=== PATIENT | female | born 1990 | race Caucasian/White ===

== ENCOUNTER 2017-08-28 05:15 | Inpatient (IN) | payer OTHER ==
[2017-08-26 13:02] VITALS: BMI 49.4
--- NOTE | 2017-08-28 11:23 | PN ---
Progress Note (short form) - Note Progress Note: PULMONARY CONSULTATION DICTATED 08/28/17 IMP MORBID OBESITY FOR LAPROSCOPIC GASTRIC SLEEVE PLAN AT THIS TIME THERE ARE NO PULMONARY CONTRAINDICATION TO ANTICIPATED SURGERY DVT PROPHYLAXIS POST-OP INCENTIVE SPIROMETER POST-OP DR CHAEVZ Problem List - Problems (1) Morbid obesity due to excess calories Code(s): E66.01 - MORBID (SEVERE) OBESITY DUE TO EXCESS CALORIES (2) Preop pulmonary/respiratory exam Code(s): Z01.811 - ENCOUNTER FOR PREPROCEDURAL RESPIRATORY EXAMINATION
--- NOTE | 2017-08-28 11:59 | CONS ---
DATE OF CONSULTATION: 08/28/2017 PULMONARY CONSULTATION REFERRING PHYSICIAN: Curtis Corcoran MD HISTORY OF PRESENT ILLNESS: The patient is a 27-year-old female without any significant past medical history who presents for pulmonary evaluation for laparoscopic gastric sleeve. She denies any complaints. Denies any history of asthma or COPD. She is a nonsmoker. There is no history of occupational exposure to chemicals or fumes. She denies any history of shortness of breath at rest and/or with exertion. She denies any chronic cough or bronchospasm. Denies any chest pain or palpitations. Denies any fevers or night sweats. Denies any history of pneumonia. She denies any orthopnea or PND. She denies any excessive daytime sleepiness or witnessed apnea episodes or morning headaches. She denies being a heavy snorer. She denies any history of DVT or PE in the past. There is no history of oral contraceptive use. PAST MEDICAL HISTORY: Unremarkable except for morbid obesity. PAST SURGICAL HISTORY: Denies any previous surgeries but had tonsillectomy age 9. ALLERGIES: Denied. CURRENT MEDICATIONS: Currently on no medications. REVIEW OF SYSTEMS: No headache, no visual disturbance, no shortness of breath, no cough, no hemoptysis, no chest pain or palpitations, no GI complaints, no GERD, no hematochezia, hematemesis. Denies any lower extremity edema. PHYSICAL EXAMINATION: General: The patient is a morbidly obese white female, awake, alert in no acute respiratory distress. Vitals: Weight is 270 pounds, 5 foot 2 inches. Blood pressure is 119/60, respiratory rate 20, temperature 98.6 and O2 saturation 99% on room air. HEENT: Examination is normocephalic and atraumatic. Neck: Supple without adenopathy. Heart: Regular with S1, S2. Lungs: Clear. Abdomen: Soft, bowel sounds positive. Extremities: No cyanosis or edema. LABORATORY DATA: Chest x-ray no infiltrates, no effusions. The patient underwent a sleep study on July 28, 2017 which was normal with an AHI of 1.4. Pulmonary function test were within normal limits. IMPRESSION AND RECOMMENDATIONS: Morbid obesity for laparoscopic gastric sleeve. Suggest at this time there are no pulmonary contraindications to anticipated surgery. I suggest DVT prophylaxis postoperative and incentive spirometry postoperative. PAU CHAVEZ M.D. [id number]
--- NOTE | 2017-08-28 14:12 | HP ---
Admitting History and Physical - Admission Chief Complaint: Morbid obesity History of Present Illness: Presents for Robotic sleeve gastrectomy History Source: Patient Limitations to Obtaining History: No Limitations - Past Medical History ...LMP: 08/02/17 ...LMP Comment: REGULAR ...: No - Past Surgical History Past Surgical History: Yes: Tonsillectomy - Smoking History Smoking history: Never smoked - Alcohol/Substance Use Hx Alcohol Use: No Home Medications - Allergies Allergies/Adverse Reactions: Allergies Allergy/AdvReac Type Severity Reaction Status Date / Time No Known Drug Allergies Allergy Verified 08/26/17 13:02 - Home Medications Home Medications: Ambulatory Orders NK [No Known Home Medication] 08/26/17 Family Disease History - Family Disease History Family History: Denies Review of Systems - Review of Systems Constitutional: denies: Chills, Fever HENT: reports: No Symptoms Neck: reports: No Symptoms Cardiovascular: denies: Chest Pain Respiratory: denies: Cough Gastrointestinal: denies: Abdominal Pain Neurological: denies: Change in LOC Pain Intensity: 0 Physical Examination Vital Signs: Vital Signs Temperature 98.6 F 08/28/17 11:06 Pulse Rate 95 H 08/28/17 11:06 Respiratory Rate 18 08/28/17 11:06 Blood Pressure 119/60 08/28/17 11:06 O2 Sat by Pulse Oximetry (%) 99 08/28/17 11:11 Constitutional: Yes: Calm HENT: Yes: WNL Neck: Yes: Supple Cardiovascular: Yes: Regular Rate and Rhythm Respiratory: Yes: CTA Bilaterally Gastrointestinal: Yes: Soft, Abdomen, Obese. No: Tenderness Neurological: Yes: Alert, Oriented Problem List - Problems (1) Morbid (severe) obesity due to excess calories Code(s): E66.01 - MORBID (SEVERE) OBESITY DUE TO EXCESS CALORIES (2) BMI 45.0-49.9, adult Code(s): Z68.42 - BODY MASS INDEX (BMI) 45.0-49.9, ADULT Assessment/Plan 27 female for robotic vertical sleeve gastrectomy, possible liver biopsy, upper endoscopy
[2017-08-28] MEDS ORDERED: MIDAZOLAM HCL 2 MG/2 ML SINGLE DOSE VIAL ONE (14:22)
[2017-08-28] MEDS ORDERED: ROCURONIUM BROMIDE 50 MG/5 ML VIAL ONE ×2 (14:23→15:17)
[2017-08-28] MEDS ORDERED: fentaNYL CITRATE 250 MCG/5 ML VIAL ONE (14:23)
[2017-08-28] MEDS ORDERED: PROPOFOL 20 ML ONE ×4 (14:23→16:28)
[2017-08-28] MEDS ORDERED: BUPIVACAINE HCL/PF 0.5% (5MG/ML) 10 ML VIAL ONE (15:09)
[2017-08-28] MEDS ORDERED: ceFAZolin SODIUM 1 GM VIAL IVPB ONE (15:15)
[2017-08-28] MEDS ORDERED: LIDOCAINE HCL/PF 2% SDV 5ML VIAL ONE (15:24)
[2017-08-28] MEDS ORDERED: DEXAMETHASONE SOD PHOSPHATE 4 MG/1 ML VIAL ONE (15:24)
[2017-08-28] MEDS ORDERED: ceFAZolin SODIUM 1 GM VIAL ONE (15:24)
[2017-08-28] MEDS ORDERED: HYDROmorphone HCL CARPU-JECT 1 MG/1 ML DISP.SYRIN IVPUSH PRN (16:06)
[2017-08-28] MEDS ORDERED: ONDANSETRON 4 MG/2 ML VIAL IVPUSH PRN (16:06)
[2017-08-28] MEDS ORDERED: LACTATED RINGERS SOLUTION 1,000 ML IV SCH (16:15)
[2017-08-28] MEDS ORDERED: HYDROmorphone HCL CARPU-JECT 2 MG/1 ML DISP.SYRIN IVPUSH PRN (16:21)
[2017-08-28] MEDS ORDERED: HYDROmorphone HCL CARPU-JECT 2 MG/1 ML DISP.SYRIN ONE (16:34)
[2017-08-28] MEDS ORDERED: NEOSTIGMINE METHYLSULFATE 0.5 MG/ML - 10 ML MDV ONE (16:38)
[2017-08-28] MEDS ORDERED: GLYCOPYRROLATE 0.2 MG/1 ML VIAL ONE (16:40)
[2017-08-28] MEDS ORDERED: BUPIVACAINE HCL/PF 0.5% (5MG/ML) 10 ML VIAL IJ ONE (18:00)
--- NOTE | 2017-08-28 18:14 | OP ---
Operative Note - Note: Operative Date: 08/28/17 Pre-Operative Diagnosis: Morbid obesity Operation: Robotic vertical sleeve gastrectomy. Robotic wedge liver biopsy. Upper endoscopy Post-Operative Diagnosis: Other (Morbid obesity, hepatomegaly) Surgeon: Curtis Corcoran Dental Associate: Gab Hussein Anesthesia: General Specimens Removed: Greater curvature of stomach. Left lobe liver biopsy Estimated Blood Loss (mls): 30 Drains & Tubes with Location: 36 Fr Bougie Operative Report Dictated: Yes
[2017-08-28] MEDS ORDERED: ONDANSETRON 4 MG/2 ML VIAL ONE (18:32)
[2017-08-28] MEDS ORDERED: ACETAMINOPHEN INJECTION 100 ML IVPB ONE (18:32)
[2017-08-28] MEDS ORDERED: METOCLOPRAMIDE HCL INJECTION 10 MG/2 ML VIAL ONE (18:32)
[2017-08-28] MEDS: METOCLOPRAMIDE HCL INJECTION 10 MG/2 ML VIAL IVPUSH SCH ×2 (18:35→23:51)
[2017-08-28] MEDS: ONDANSETRON 4 MG/2 ML VIAL IVPUSH SCH ×2 (18:40→23:51)
[2017-08-28] MEDS: ACETAMINOPHEN 1000 MG/100 ML VIAL (NON FORMULARY) IVPB SCH (18:45)
[2017-08-28] MEDS: SODIUM CHLORIDE 1,000 ML IV SCH (19:30)
[2017-08-28 19:31] LABS: HEMATOCRIT 39.8 % (32.4-45.2); MCH 28.8 pg (25.7-33.7); MCHC 32.6 g/dl (32.0-36.0); MEAN CELL VOLUME 88.2 fl (80-96); MEAN PLT VOLUME 10.4 fl (7.5-11.1); PLATELET COUNT 250 K/MM3 (134-434); RBC 4.52 M/mm3 (3.60-5.2); RDW 14.2 % (11.6-15.6); WHITE BLOOD COUNT 17.2 K/mm3 (4.0-10.0)
[2017-08-28 20:03] LABS: ALBUMIN 3.3 g/dl (3.4-5.0); ANION GAP 11 (8-16); BLOOD UREA NITROGEN 9 mg/dL (7-18); CALCIUM 8.4 mg/dL (8.5-10.1); CHLORIDE 108 mmol/L (98-107); CO2 21 mmol/L (21-32); CREATININE 0.7 mg/dL (0.55-1.02); GLUCOSE,RANDOM 89 mg/dL (74-106); POTASSIUM 3.8 mmol/L (3.5-5.1); SGOT/AST 65 U/L (15-37); SGPT/ALT 78 U/L (12-78); SODIUM 140 mmol/L (136-145)
[2017-08-28 20:05] LABS: ALK PHOS 67 U/L (45-117); BILIRUBIN,TOTAL 0.5 mg/dL (0.2-1.0); TOT PROT 6.9 g/dl (6.4-8.2)
--- NOTE | 2017-08-28 20:07 | SPEC ---
DATE OF OPERATION: 08/28/2017 SURGEON: Alysha Corcoran MD DRAWER IN JACQUARD LOOM: Gab Hussein MD PREOPERATIVE DIAGNOSIS: Morbid obesity, body mass index 49.4. POSTOPERATIVE DIAGNOSE: Morbid obesity, body mass index 49.4, and hepatomegaly. PROCEDURE: Robotic vertical sleeve gastrectomy, robotic wedge liver biopsy, and upper endoscopy. BOUGIE: 36 Chinese. ANESTHESIA: GET. SPECIMEN: Greater curvature of the stomach, and left lobe of the liver wedge biopsy. ESTIMATED BLOOD LOSS: 30 mL. REASON FOR PROCEDURE: This is a 27-year-old female, who presents to the office for weight loss options. After describing different options, she decided to proceed with a robotic vertical sleeve gastrectomy, possible liver biopsy, and upper endoscopy. RISKS AND BENEFITS: After describing the different options for management of weight loss, the patient decided to proceed with a robotic laparoscopic, possible open vertical sleeve gastrectomy, possible liver biopsy, and upper endoscopy. The patient was seen by the respective subspecialities and cleared for surgery. The risks and benefits of the procedure were explained. These included bleeding, infection, hernia, IL, DVT, PE, injury to surrounding structures including the liver, colon, bowel, spleen, esophagus, vessel injury, nerve injury, weight regain, gastric leak, staple line leak, sleeve leak, obstruction, vitamin deficiency, hair loss, and as some of the possible complications. The patient understood and signed informed consent. DESCRIPTION OF PROCEDURE: The patient was placed supine on the operating room table. The patient underwent general endotracheal intubation. A Jain catheter was inserted by the nursing staff. The arms were brought out at 90 degrees and secured. A foot board was placed and the legs were secured laterally with padding. The abdomen was prepped and draped in the usual sterile fashion. A time-out was performed. An incision was made superior and to the left of the umbilicus. A Veress needle was inserted. Pneumoperitoneum was established. Subsequently the Veress needle was removed. An 8-mm robotic trocar was placed under direct visualization with the laparoscope. Inspection of the abdominal cavity was performed. An 8-mm trocar was then placed in the left abdominal wall approximately 6 to 7 cm to the left of the initial trocar. An 8-mm robotic trocar was then placed in the left abdominal wall approximately 6 to 7 cm to the left of the initial trocar. A 12-mm robotic trocar was then placed in the right abdominal wall approximately 6 to 7 cm to the right of the initial trocar and an 8-mm robotic trocar placed approximately 6 to 7 cm lateral to the 12-mm trocar. A stab wound was made in the subxiphoid area and a Nena clamp inserted and removed to dilate the tract. A Maggie liver retractor was inserted. The post was secured at the bedside by the nursing staff. The patient was placed in steep reverse Trendelenburg position and the Maggie liver retractor was used to secure the liver towards the anterior abdominal wall. The robot was brought over the field and docked. Dissection was performed at the console. The pylorus was identified and 6 cm proximal to it the lesser sac was entered using the vessel sealer. From this point cephalad all lateral attachments to the greater curvature of the stomach including the short gastric vessels were ligated using the vessel sealer towards the gastrosplenic and gastrophrenic ligaments. Once this was done in its entirety, all tubes within the nasal or oropharyngeal cavity including a temperature probe was confirmed to be removed by Anesthesia. The bougie was then inserted by Anesthesia. Transection of the stomach was then begun staying adjacent to the bougie, but away from the angularis. Transection of the stomach was performed near the portion of the stomach where the lesser sac was entered. Two robotic green adama were used at this location. Robotic blue adama were then used for the remainder of the transection until the greater curvature of the stomach was fully transected. Again this was done staying close to the bougie. Care was taken to stay away from the angle of His cephalad. The staple line was then inspected. Hemostasis was identified. A leak test was then performed. The stomach was clamped distally to the staple line. Irrigation solution was placed in the left upper quadrant and air insufflated by Anesthesia into the sleeve. No leaks were identified and no obstruction was identified. This was done throughout the staple line. At this point, the irrigation solution was suctioned and again hemostasis noted. A wedge liver biopsy was then performed. A portion of the left lobe of the liver was identified and an edge of it grasped. Using electrocautery a wedge of this portion of the liver was excised. The specimen was removed from the abdominal cavity and sent off the field. Hemostasis of the biopsy site as attained using electrocautery. The robotic instruments were then removed. The robot was undocked from the operative field. The 12-mm robotic trocar was removed and the greater curvature specimen removed from this site using a sponge stick dickson. The specimen was inspected and the Veress needle inserted. The specimen insufflated adequately and no leak was identified. The staple line was noted to be straight and intact. A Sam-Juan Manuel device was then used to close the fascia with a 0 Vicryl suture at this site. The liver retractor was removed under direct visualization. Pneumoperitoneum was desufflated and the fascial suture was secured. Hemostasis was noted at all incision sites and Marcaine was injected at all incision sites. All incision sites were closed using 4-0 Biosyn. Sterile dressings were applied. The patient tolerated the procedure well and was transferred to the recovery room in stable condition with a Jain catheter intact. The patient was transferred to telemetry for further monitoring. ADDENDUM: In addition, and upper endoscopy was performed at the end. The endoscope was inserted into the esophagus, GE junction, gastric pouch. The entirety of the staple line was inspected. Hemostasis was noted. No leak or obstruction was noted. Stomach was suctioned, the endoscope removed. Patient tolerated the procedure well, was transferred to recovery room in stable condition. ALYSHA CORCORAN M.D. [id number]
[2017-08-28] MEDS ORDERED: PT OWN MED DRAWER 7, Y5N ONE (23:42)
[2017-08-28] MEDS: ENOXAPARIN NA (PORCINE) 40 MG/0.4 ML DISP.SYRIN SQ SCH (23:51)
[2017-08-29] MEDS: ACETAMINOPHEN 1000 MG/100 ML VIAL (NON FORMULARY) IVPB SCH ×3 (01:09→14:20)
[2017-08-29] MEDS: FAMOTIDINE 20 MG/50 ML IVPB 20 MG/50 ML MG IVPB SCH ×3 (01:10→21:50)
[2017-08-29] MEDS: ONDANSETRON 4 MG/2 ML VIAL IVPUSH SCH ×6 (02:29→21:50)
[2017-08-29] MEDS: METOCLOPRAMIDE HCL INJECTION 10 MG/2 ML VIAL IVPUSH SCH ×3 (05:47→17:52)
[2017-08-29] MEDS: SODIUM CHLORIDE 1,000 ML IV SCH ×2 (06:26)
[2017-08-29] MEDS: HYDROmorphone HCL CARPU-JECT 2 MG/1 ML DISP.SYRIN IVPB PRN ×2 (06:38→12:38)
[2017-08-29 07:20] LABS: HEMOGLOBIN 12.1 GM/dL (10.7-15.3); MCH 28.4 pg (25.7-33.7); MCHC 31.9 g/dl (32.0-36.0); MEAN CELL VOLUME 89.1 fl (80-96); PLATELET COUNT 242 K/MM3 (134-434); RBC 4.27 M/mm3 (3.60-5.2); RDW 14.2 % (11.6-15.6); WHITE BLOOD COUNT 16.9 K/mm3 (4.0-10.0)
[2017-08-29 08:43] LABS: ALBUMIN 2.9 g/dl (3.4-5.0); ALK PHOS 60 U/L (45-117); ANION GAP 10 (8-16); BILIRUBIN,TOTAL 0.6 mg/dL (0.2-1.0); BLOOD UREA NITROGEN 6 mg/dL (7-18); CHLORIDE 109 mmol/L (98-107); CO2 21 mmol/L (21-32); CREATININE 0.6 mg/dL (0.55-1.02); GLUCOSE,RANDOM 70 mg/dL (74-106); POTASSIUM 4.1 mmol/L (3.5-5.1); SGOT/AST 73 U/L (15-37); SGPT/ALT 73 U/L (12-78); SODIUM 140 mmol/L (136-145); TOT PROT 6.2 g/dl (6.4-8.2)
[2017-08-29] MEDS: ENOXAPARIN NA (PORCINE) 40 MG/0.4 ML DISP.SYRIN SQ SCH ×2 (10:02→21:51)
[2017-08-29] MEDS ORDERED: oxyCODONE HCL 5 MG TABLET PO PRN (11:04)
[2017-08-29] MEDS ORDERED: ACETAMINOPHEN 325 MG TABLET (FP) PO PRN (11:04)
[2017-08-29] MEDS ORDERED: SODIUM CHLORIDE 1,000 ML IV SCH (11:15)
--- NOTE | 2017-08-29 12:23 | PN ---
Progress Note (short form) - Note Progress Note: POD 1 Pain controlled No nausea Vital Signs Period Temp Pulse Resp BP Sys/Omalley Pulse Ox Last 24 Hr 98.1 F-99.0 F 67-96 16-20 110-159/50-82 99-100 Abd soft CBC,CMP WBC 16.9 K/mm3 (4.0-10.0) H 08/29/17 06:20 RBC 4.27 M/mm3 (3.60-5.2) 08/29/17 06:20 Hgb 12.1 GM/dL (10.7-15.3) 08/29/17 06:20 Hct 38.0 % (32.4-45.2) 08/29/17 06:20 MCV 89.1 fl (80-96) 08/29/17 06:20 MCH 28.4 pg (25.7-33.7) 08/29/17 06:20 MCHC 31.9 g/dl (32.0-36.0) L 08/29/17 06:20 RDW 14.2 % (11.6-15.6) 08/29/17 06:20 Plt Count 242 K/MM3 (134-434) 08/29/17 06:20 MPV 10.0 fl (7.5-11.1) 08/29/17 06:20 Sodium 140 mmol/L (136-145) 08/29/17 06:20 Potassium 4.1 mmol/L (3.5-5.1) 08/29/17 06:20 Chloride 109 mmol/L (98-107) H 08/29/17 06:20 Carbon Dioxide 21 mmol/L (21-32) 08/29/17 06:20 Anion Gap 10 (8-16) 08/29/17 06:20 BUN 6 mg/dL (7-18) L D 08/29/17 06:20 Creatinine 0.6 mg/dL (0.55-1.02) 08/29/17 06:20 Creat Clearance w eGFR > 60 (>60) 08/29/17 06:20 Random Glucose 70 mg/dL (74-106) L D 08/29/17 06:20 Calcium 8.0 mg/dL (8.5-10.1) L 08/29/17 06:20 Total Bilirubin 0.6 mg/dL (0.2-1.0) 08/29/17 06:20 AST 73 U/L (15-37) H 08/29/17 06:20 ALT 73 U/L (12-78) 08/29/17 06:20 Alkaline Phosphatase 60 U/L (45-117) 08/29/17 06:20 Total Protein 6.2 g/dl (6.4-8.2) L 08/29/17 06:20 Albumin 2.9 g/dl (3.4-5.0) L 08/29/17 06:20 UGI: no leak/obstruction Clears Ambulate Problem List - Problems (1) Morbid (severe) obesity due to excess calories Code(s): E66.01 - MORBID (SEVERE) OBESITY DUE TO EXCESS CALORIES (2) BMI 45.0-49.9, adult Code(s): Z68.42 - BODY MASS INDEX (BMI) 45.0-49.9, ADULT
--- NOTE | 2017-08-29 20:35 | PN ---
Progress Note, Physician Chief Complaint: Pt. pain controlled, no GA complaints. - Current Medication List Current Medications: Active Medications Acetaminophen (Tylenol -) 325 mg PO Q4H PRN PRN Reason: FEVER OR PAIN Enoxaparin Sodium (Lovenox -) 40 mg SQ BID [facility] Last Admin: 08/29/17 10:02 Dose: 40 mg Fentanyl (Sublimaze Injection -) 50 mcg IVPUSH [id number] PRN PRN Reason: PAIN Hydromorphone HCl (Dilaudid Injection -) 0.5 mg IVPUSH [id number] PRN PRN Reason: PAIN Hydromorphone HCl (Dilaudid Injection -) 1 mg IVPB Q3H PRN PRN Reason: PAIN Last Admin: 08/29/17 12:38 Dose: 1 mg Famotidine/Sodium Chloride (Pepcid 20 Mg Premixed Ivpb -) 20 mg in 50 mls @ 100 mls/hr IVPB BID [facility] Last Admin: 08/29/17 11:31 Dose: 100 mls/hr Sodium Chloride (Normal Saline -) 1,000 mls @ 75 mls/hr IV ASDIR [facility] Last Admin: 08/29/17 11:31 Dose: 75 mls/hr Metoclopramide HCl (Reglan Injection -) 10 mg IVPUSH Q6H [facility] Last Admin: 08/29/17 17:52 Dose: 10 mg Ondansetron HCl (Zofran Injection) 4 mg IVPUSH Q6H PRN PRN Reason: NAUSEA AND/OR VOMITING Ondansetron HCl (Zofran Injection) 4 mg IVPUSH Q4H [facility] Last Admin: 08/29/17 17:52 Dose: 4 mg Oxycodone HCl (Roxicodone -) 5 mg PO Q4H PRN PRN Reason: PAIN - Objective Vital Signs: Vital Signs Temperature 97.8 F 08/29/17 18:30 Pulse Rate 76 08/29/17 18:30 Respiratory Rate 18 08/29/17 18:30 Blood Pressure 117/66 08/29/17 18:30 O2 Sat by Pulse Oximetry (%) 99 08/29/17 09:00 Constitutional: Yes: Well Nourished, No Distress, Calm Musculoskeletal: Yes: WNL Neurological: Yes: WNL, Alert, Oriented Labs: CBC, BMP 08/29/17 06:20 08/29/17 06:20 Assessment/Plan POD#1 s/p Robotic gastric sleeve under GA. Doing well. D/C from anesthesia care.
[2017-08-30] MEDS: METOCLOPRAMIDE HCL INJECTION 10 MG/2 ML VIAL IVPUSH SCH ×2 (00:30→05:23)
[2017-08-30] MEDS: ONDANSETRON 4 MG/2 ML VIAL IVPUSH SCH ×3 (01:30→09:20)
[2017-08-30] MEDS: FAMOTIDINE 20 MG/50 ML IVPB 20 MG/50 ML MG IVPB SCH (09:19)
[2017-08-30] MEDS: ENOXAPARIN NA (PORCINE) 40 MG/0.4 ML DISP.SYRIN SQ SCH (09:20)
[2017-08-30 09:26] VITALS: BP 113/70; PULSE 98; TEMP 98.2
--- NOTE | 2017-09-02 15:06 | PATH ---
Surgical Pathology Report Patient Name: MICHAEL COPPOLA [facility]. Rec. #: [id number] /Age/Gender: 1990 (Age: 27) / F Account: [id number] Location: 4 PEDS/ADOL Taken: 08/28/2017 Received: 08/29/2017 Reported: 09/02/2017 Physicians: Curtis Corcoran M.D. Specimen(s) Received A: GREATER CURVATURE STOMACH B: LIVER BIOPSY Clinical History Morbid obesity Final Diagnosis A. STOMACH, GREATER CURVATURE, ROBOTIC VERTICAL SLEEVE GASTRECTOMY: PORTION OF STOMACH WITH MILD CHRONIC GASTRITIS. IMMUNOHISTOCHEMICAL STAIN FOR H. PYLORI IS NEGATIVE. B. LIVER, BIOPSY: LIVER PARENCHYMA WITH MILD STEATOSIS (< 5%). NO INCREASE IN IRON AND FIBROSIS ON PERFORMED SPECIAL STAINS (IRON AND TRICHROME). Comment: Subcapsular biopsy with thermal artifact. Fatty liver may be associated with diabetes mellitus, metabolic syndromes, obesity, medications, alcohol use, etc. There is no evidence of chronic or autoimmune hepatitis in this sample. Clinical and laboratory correlation recommended. Electronically Signed Edith Krishnan M.D. Gross Description A. Received in formalin, labeled "greater curvature of stomach," is an 85 gram, 14.0 x 4.0 x 3.2 cm. portion of stomach with a stapled margin of resection. The serosa is mccoy-arreola with minimal attached fat. The mucosa is mccoy-pink with normal folds. No mucosal masses are identified. Circular Saw Edge Fuser sections are submitted in one cassette. B. Received in formalin labeled "liver biopsy," are 2 mccoy brown fragments of liver tissue measuring 1.2 x 0.8 x 0.3 cm and 1.2 x 0.9 x 0.4 cm. The larger portion is bisected and the specimen is entirely submitted in one cassette. 08/29/201708/29/2017
== END 2017-08-30 10:24 | disposition home or self-care (01) | DRG 403 ==
LOC: JSAMEDAYSX 05:15 → EDSTATUS 14:00 → J4S 20:39
PROVIDERS: ADMIT Surgery; ATTEND Surgery
PROC: 0DB64Z3 Excision of Stomach, Percutaneous Endoscopic Approach, Vertical (ICD-10-PCS; principal; 2017-08-30)
PROC: 0FB24ZX Excision of Left Lobe Liver, Percutaneous Endoscopic Approach, Diagnostic (ICD-10-PCS; 2017-08-30)
PROC: 8E0W4CZ Robotic Assisted Procedure of Trunk Region, Percutaneous Endoscopic Approach (ICD-10-PCS; 2017-08-30)
DX: E66.01 Morbid (severe) obesity due to excess calories (principal); R16.0 Hepatomegaly, not elsewhere classified; Z68.42 Body mass index [BMI] 45.0-49.9, adult
CPT/HCPCS: 36415; 74241-TC; 80053; 84703; 85027; 86850; 86900; 86901; 88307-TC; 94010; 94760